=== PATIENT | male | born 1985 | race Caucasian/White ===

== ENCOUNTER → 2019-06-22 | Outpatient (CLI) | payer OTHER ==
--- NOTE | 2019-06-23 07:54 | REP ---
CHEST, PA AND LATERAL: 06/22/2019. Clinical history: Cough. Findings: No prior study. The lungs are well inflated without infiltrate or effusion. Some cuffed bronchi noted in the perihilar regions which might reflect reactive airway disease or bronchitis. Heart slightly shifted to the left of midline with a prominent pectus excavatum chest wall configuration. There is no specific chamber enlargement, vascular redistribution or edema. Aorta and airway are intact. Bony thoracic spine without compression deformity. Impression: 1. Peribronchial thickening which might reflect reactive airway disease or bronchitis. No infiltrate, effusion or other acute chest finding. There is a pectus excavatum chest wall configuration as anatomic variation. Electronically Signed by Guillermo Poe MD 06/23/2019 09:21 A
== END ==
LOC: M LRY 16:54
PROVIDERS: ATTEND Nurse Practitioner
DX: R05 Cough (principal)

== ENCOUNTER 2024-01-07 17:26 | Emergency (ER) | payer OTHER ==
[~2024-01-07] VITALS: Ht 175.3 cm; Wt 36.3 kg
[2024-01-08 00:29] LABS: BASO % 0.3 % (0.0-1.0); EOS # 0.1 10^3/uL (0.0-0.5); HEMATOCRIT 41.5 % (42.0-52.0); HEMOGLOBIN 14.6 g/dl (13.5-17.5); LYMPH # 2.3 10^3/uL (1.5-5.0); LYMPH % 38.5 % (24.0-44.0); MEAN CORPUSCULAR HEMOGLOBIN 29.7 pg (27.0-33.0); MEAN CORPUSCULAR HGB CONC 35.2 g/dl (32.0-36.5); MEAN CORPUSCULAR VOLUME 84.5 fl (80.0-96.0); MONO # 0.6 10^3/uL (0.0-0.8); MONO % 9.4 % (2.0-8.0); NEUTROPHILS % 49.5 % (36.0-66.0); PLATELET COUNT, AUTOMATED 288 10^3/uL (150-450); RED BLOOD COUNT 4.91 10^6/uL (4.30-6.10)
[2024-01-08 00:46] LABS: LIPASE 36 U/L (12-53)
[2024-01-08 00:48] LABS: ALBUMIN 4.1 G/DL (3.2-5.2); ALKALINE PHOSPHATASE 58 U/L (46-116); ALT/SGPT 23 U/L (7.0-40); AST/SGOT 16 U/L (<34); BILIRUBIN,DIRECT 0.3 MG/DL (<0.4); BILIRUBIN,TOTAL 0.9 MG/DL (0.3-1.2); BLOOD UREA NITROGEN 20 MG/DL (9-23); CALCIUM LEVEL 9.2 MG/DL (8.5-10.1); CARBON DIOXIDE LEVEL 28 MMOL/L (20-31); CHLORIDE LEVEL 103 MMOL/L (98-107); CREATININE FOR GFR 0.95 MG/DL (0.70-1.30); GLOMERULAR FILTRATION RATE > 60.0 (>60); GLUCOSE, FASTING 90 MG/DL (60-100); POTASSIUM SERUM 3.7 MMOL/L (3.5-5.1); SODIUM LEVEL 139 MMOL/L (136-145); TOTAL PROTEIN 7.3 G/DL (5.7-8.2)
[2024-01-08] MEDS ORDERED: ISOVUE-370 76% 100ML VIAL As Ordered ONE (01:00)
[2024-01-08] MEDS: ONDANSETRON 4MG 2ML VIAL IV ONE (01:30)
[2024-01-08] MEDS: KETOROLAC 30 MG/ML 1ML VIAL IV ONE (01:30)
[2024-01-08] MEDS: diazePAM 10MG/2ML SYRINGE IV ONE (03:47)
[2024-01-08] MEDS ORDERED: CYCL-707 PO (04:32)
[2024-01-08 04:45] VITALS: BP 115/72; TEMP 98.2; O2SAT 98
== END 2024-01-08 04:55 | disposition home or self-care (01) ==
LOC: M ED 17:26
DX: S39.011A Strain of muscle, fascia and tendon of abdomen, initial encounter (principal); X50.0XXA Overexertion from strenuous movement or load, initial encounter; F10.10 Alcohol abuse, uncomplicated; Z88.1 Allergy status to other antibiotic agents; Z79.891 Long term (current) use of opiate analgesic; Y92.9 Unspecified place or not applicable; Y93.9 Activity, unspecified; Y99.9 Unspecified external cause status
CPT/HCPCS: 74177; 80048; 80076; 83605; 83690; 85025; 93041; 96374; 96375; 99285; J1885; J2405; J3360; Q9967